=== PATIENT | female | born 1955 ===

== ENCOUNTER → 2025-03-13 08:35 | Outpatient (BNVA) | payer MEDICARE, OTHER, SELFPAY | PROVIDERS: PCP Physician Assistant; Referring Provider Physician Assistant; Visit Provider Podiatrist | DX: M79.671 Pain in right foot; T69.1XXA Chilblains, initial encounter; I25.10 Atherosclerotic heart disease of native coronary artery without angina pectoris; E11.9 Type 2 diabetes mellitus without complications; X58.XXXA Exposure to other specified factors, initial encounter; I73.89 Other specified peripheral vascular diseases | CPT/HCPCS: 99203 ==